=== PATIENT | male | born 1995 | race Caucasian/White ===

== ENCOUNTER 2018-01-18 03:09 | Emergency (ER) | payer MEDICAID, OTHER ==
[~2018-01-18] VITALS: Ht 182.9 cm; Wt 81.8 kg
[~2018-01-18 03:09] MED LIST: NOCURR
[2018-01-18 03:55] LABS: AMPHET/METH SCREEN,URINE NEGATIVE (NEGATIVE); BARBITURATE SCREEN, URINE NEGATIVE (NEGATIVE); BENZODIAZEPINES SCREEN,URINE NEGATIVE (NEGATIVE); CANNABINOID SCREEN,URINE POSITIVE (NEGATIVE); COCAINE SCREEN,URINE NEGATIVE (NEGATIVE); METHADONE SCREEN, URINE NEGATIVE (NEGATIVE); OPIATE SCREEN,URINE NEGATIVE (NEGATIVE)
[2018-01-18 03:58] LABS: PHENCYCLIDINE SCREEN,URINE NEGATIVE (NEGATIVE)
[2018-01-18 07:09] VITALS: BP 125/69
== END 2018-01-18 07:18 | disposition home or self-care (01) ==
LOC: EMS 03:09
DX: F43.22 Adjustment disorder with anxiety (principal); I10 Essential (primary) hypertension
CPT/HCPCS: 99285